=== PATIENT | female | born 2000 | race American Indian/Alaskan Native ===

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

== ENCOUNTER 2022-04-30 11:34 | Emergency (ER) | payer MEDICAID ==
[2022-04-30 16:06] LABS: Bilirubin,Urine NEG (Negative); Blood,Urine NEG (Negative); Color,Urine Yellow (Yellow); Urobilinogen,Urine < 2.0 mg/dL (<2.0)
[2022-04-30 16:21] LABS: Bacteria,Urine 3+ /HPF (Negative); Mucus,Urine 3+ /HPF; Renal Epithelial Cells,Urine <1 /LPF
--- NOTE | 2022-04-30 16:59 | Emergency Department Report ---
ED Female HPI - General Chief complaint: Urogenital-Female Stated complaint: VAGINAL PAIN WITH RASH Time Seen by Provider: 04/30/22 14:42 Source: patient Mode of arrival: Ambulatory Limitations: No Limitations - History of Present Illness Initial comments: 22-year-old black female with no past medical history presents to the emergency department for evaluation of few day history of worsening rash to the buttocks and vaginal area. She states that she noticed it a couple days ago and has been getting worse every day. She states that area that is painful de luna if she gets urine on it. She denies fever, abdominal pain, nausea, vomiting, diarrhea but states that she has had some discharge coming from the rash to her buttocks. She endorses that she recently started having sex with a new partner unprotected. MD Complaint: dysuria, other (Rash to vaginal area) -: Gradual, days(s) (2-3) Location: perineum Radiation: non-radiating Severity: moderate Severity scale (0 -10): 6 Quality: burning Consistency: intermittent Worsens with: urination, other (Any touch) Are you Now?: No Associated Symptoms: vaginal discharge, dysuria, rash. denies: vaginal bleeding, abdominal pain, nausea/vomiting, fever/chills, headaches, loss of appetite, hematuria, seizure, shortness of breath, syncope, weakness - Related Data Sexually active: Yes Previous Rx's Medication Instructions Recorded Last Taken Type Acetaminophen/Codeine [Tylenol 1 tab PO Q6H PRN #12 tab 09/24/19 Unknown Rx /Codeine # 3 tab] Clindamycin [Clindamycin CAP] 300 mg PO Q8HR #60 capsule 09/24/19 Unknown Rx Ibuprofen [Motrin] 600 mg PO Q8H PRN #24 tablet 09/24/19 Unknown Rx Ondansetron [Zofran Odt] 4 mg PO Q6HR PRN #15 tab.rapdis 09/24/19 Unknown Rx Sulfamethoxazole/Trimethoprim 1 each PO Q12H #20 tablet 09/24/19 Unknown Rx [Bactrim DS TAB] Acetaminophen [Tactinal] 650 mg PO Q6H PRN #30 tablet 01/08/21 Unknown Rx Amoxicillin/Potassium Clav 1 each PO BID 7 Days #14 tablet 01/08/21 Unknown Rx [Augmentin 875-125 Tablet] dexAMETHasone [Decadron] 4 mg PO BID 3 Days #6 tablet 01/08/21 Unknown Rx Valacyclovir HCl [Valacyclovir] 1,000 mg PO BID 7 Days #14 tab 04/30/22 Unknown Rx cephALEXin [Keflex] 500 mg PO BID 7 Days #14 cap 04/30/22 Unknown Rx Allergies Allergy/AdvReac Type Severity Reaction Status Date / Time No Known Allergies Allergy Verified 09/24/19 04:41 ED Review of Systems ROS: Stated complaint: VAGINAL PAIN WITH RASH Other details as noted in HPI Comment: All other systems reviewed and negative Constitutional: denies: chills, fever ENT: denies: congestion Respiratory: denies: shortness of breath Cardiovascular: denies: chest pain, palpitations Gastrointestinal: denies: abdominal pain, nausea, vomiting, diarrhea, hematemesis, melena, hematochezia Genitourinary: dysuria. denies: urgency Musculoskeletal: denies: back pain Skin: rash Neurological: denies: headache, weakness ED Past Medical Hx - Past Medical History Previous Medical History?: No - Surgical History Past Surgical History?: No - Social History Smoking Status: Current Every Day Smoker - Medications Home Medications: Home Medications Medication Instructions Recorded Confirmed Last Taken Type Acetaminophen/Codeine [Tylenol 1 tab PO Q6H PRN #12 tab 09/24/19 Unknown Rx /Codeine # 3 tab] Clindamycin [Clindamycin CAP] 300 mg PO Q8HR #60 capsule 09/24/19 Unknown Rx Ibuprofen [Motrin] 600 mg PO Q8H PRN #24 tablet 09/24/19 Unknown Rx Ondansetron [Zofran Odt] 4 mg PO Q6HR PRN #15 tab.rapdis 09/24/19 Unknown Rx Sulfamethoxazole/Trimethoprim 1 each PO Q12H #20 tablet 09/24/19 Unknown Rx [Bactrim DS TAB] Acetaminophen [Tactinal] 650 mg PO Q6H PRN #30 tablet 01/08/21 Unknown Rx Amoxicillin/Potassium Clav 1 each PO BID 7 Days #14 tablet 01/08/21 Unknown Rx [Augmentin 875-125 Tablet] dexAMETHasone [Decadron] 4 mg PO BID 3 Days #6 tablet 01/08/21 Unknown Rx Valacyclovir HCl [Valacyclovir] 1,000 mg PO BID 7 Days #14 tab 04/30/22 Unknown Rx cephALEXin [Keflex] 500 mg PO BID 7 Days #14 cap 04/30/22 Unknown Rx ED Physical Exam - General Limitations: No Limitations General appearance: alert, in no apparent distress - Head Head exam: Present: atraumatic, normocephalic - Eye Eye exam: Present: normal appearance. Absent: scleral icterus, conjunctival injection, periorbital swelling, periorbital tenderness - Neck Neck exam: Present: normal inspection - Respiratory Respiratory exam: Present: normal lung sounds bilaterally. Absent: respiratory distress, wheezes, rales, rhonchi, stridor, chest wall tenderness - Cardiovascular Cardiovascular Exam: Present: regular rate, normal heart sounds - GI/Abdominal GI/Abdominal exam: Present: soft, normal bowel sounds. Absent: distended, tenderness, guarding, rebound, rigid - External exam: Present: erythema, lesions (Noted to have vesicular lesions in various stages of healing over entire perineal area from top of labia majora area to buttocks area. Lesion is painful to touch and noted to have drainage). Absent: normal external exam - Extremities Exam Extremities exam: Present: normal inspection - Back Exam Back exam: Present: normal inspection. Absent: CVA tenderness (R), CVA tenderness (L) - Neurological Exam Neurological exam: Present: alert, oriented X3, normal gait - Psychiatric Psychiatric exam: Present: normal affect, normal mood - Skin Skin exam: Present: warm, dry, normal color ED Course Vital Signs 04/30/22 04/30/22 12:06 18:48 Temperature 99.0 F Pulse Rate 94 H 88 Respiratory 18 Rate Blood Pressure 105/62 Blood Pressure 104/68 [Left] O2 Sat by Pulse 100 Oximetry ED Medical Decision Making - Medical Decision Making 22-year-old black female with no past medical history presents to the emergency department for evaluation of few day history of worsening rash to the buttocks and vaginal area. She states that she noticed it a couple days ago and has been getting worse every day. She states that area that is painful de luna if she gets urine on it. She denies fever, abdominal pain, nausea, vomiting, diarrhea but states that she has had some discharge coming from the rash to her buttocks. She endorses that she recently started having sex with a new partner unprotected. Physical exam consistent with genital herpes. UA positive for UTI. Patient will be treated with 7-day course of valacyclovir along with Keflex. She is advised to take medications as prescribed, advise partner to be evaluated, practice safe sex, and follow-up with [facility] or [facility] department for further evaluation and management. She is advised to return to the emergency department for any concerning symptoms. She verbalizes understanding of and agreement with plan of care. Critical care attestation.: If time is entered above; I have spent that time in minutes in the direct care of this critically ill patient, excluding procedure time. ED Disposition Clinical Impression: UTI (urinary tract infection) Qualifiers: Urinary tract infection type: acute cystitis Hematuria presence: without hematuria Qualified Code(s): N30.00 - Acute cystitis without hematuria Genital herpes Qualifiers: Herpes simplex infection site: vulvovaginitis Qualified Code(s): A60.04 - Herpesviral vulvovaginitis Disposition: HOME / SELF CARE / HOMELESS Is pt being admited?: No Does the pt Need Aspirin: No Condition: Stable Instructions: Antibiotic Medicine, Adult, [id number], Urinary Tract Infection, Adult, [id number], Genital Herpes Additional Instructions: Take medications as prescribed. Follow-up with primary care provider for further evaluation and management. Return to the emergency department as needed. Prescriptions: cephALEXin [Keflex] 500 mg PO BID 7 Days #14 cap Valacyclovir HCl [Valacyclovir] 1,000 mg PO BID 7 Days #14 tab Referrals: JENNIFER HERNADEZ MD [Staff Physician] - 3-5 Days [facility] [Outside] - 3-5 Days Forms: Work/School Release Form(ED) Time of Disposition: 17:38
[2022-04-30 17:24] LABS: HCG Qualitative,Urine Negative (Negative)
[2022-04-30 18:49] VITALS: BP 104/68
== END 2022-04-30 18:49 | disposition home or self-care (01) ==
LOC: ED 11:34
DX: N39.0 Urinary tract infection, site not specified (principal); A60.00 Herpesviral infection of urogenital system, unspecified; F17.200 Nicotine dependence, unspecified, uncomplicated; Z79.899 Other long term (current) drug therapy
CPT/HCPCS: 36415; 81001; 81025; 87086; 87255; 99283